=== PATIENT | male | born 1925 | race Caucasian/White ===

== ENCOUNTER → 2016-11-14 | Day surgery (SDC) | payer MEDICARE ==
[~2016-11-14] VITALS: Ht 180.3 cm; Wt 86.2 kg
[~2016-11-14] MED LIST: AMA1 PO; AMLO5TAB4 PO; ASPI-1035 PO; ATOR20TA PO; CARV12.545 PO; CARV6.2548 PO; CLOP75TA2 PO; DIPHENHYDRAMINE 50MG/ML VIAL ONE; FAMO20TA8 PO; FAMOTIDINE 20MG/2ML VIAL IV ONE; FENTANYL CITRATE/PF 50MCG/ML 2ML VIAL ONE; FINA5TAB11 PO; FISH GT; FURO20TA4 PO; GABA300C PO; GLYB5TAB7 PO; GRAP25CA PO; HEPARIN SODIUM 1,000 UNIT/1ML VIAL IV ONE; HYDROCORTISONE SOD SUCCINATE 250 MG/2 ML VIAL ONE; IODIXANOL 320MG/ML 100 ML BOTTLE IV ONE; LIDOCAINE HCL 1% 20ML VIAL (Pyxis) INJ ONE; LOSA50TA20 PO; METF10002 PO; MIDAZOLAM HCL 2 MG/2 ML VIAL ONE; POTA20TA75 PO; WARF4TAB40 PO
== END | disposition home or self-care (01) ==
LOC: CCL 07:28
PROVIDERS: ATTEND Specialist
DX: I25.10 Atherosclerotic heart disease of native coronary artery without angina pectoris (principal); I73.9 Peripheral vascular disease, unspecified; E78.5 Hyperlipidemia, unspecified; I10 Essential (primary) hypertension; J44.9 Chronic obstructive pulmonary disease, unspecified; I48.92 Unspecified atrial flutter; Z53.9 Procedure and treatment not carried out, unspecified reason
CPT/HCPCS: J1200; J1644; J1720; J2250; J3010; J3490; Q9967

== ENCOUNTER 2016-11-18 17:30 | Inpatient (IN) | payer MEDICARE ==
[~2016-11-18] VITALS: Ht 185.4 cm; Wt 86.2 kg
[~2016-11-18 17:30] MED LIST changes: -CARV12.545 PO; -CLOP75TA2 PO; -DIPHENHYDRAMINE 50MG/ML VIAL ONE; -FAMOTIDINE 20MG/2ML VIAL IV ONE; -FENTANYL CITRATE/PF 50MCG/ML 2ML VIAL ONE; -GABA300C PO; -GLYB5TAB7 PO; -HEPARIN SODIUM 1,000 UNIT/1ML VIAL IV ONE; -HYDROCORTISONE SOD SUCCINATE 250 MG/2 ML VIAL ONE; -IODIXANOL 320MG/ML 100 ML BOTTLE IV ONE; -LIDOCAINE HCL 1% 20ML VIAL (Pyxis) INJ ONE; +METF-246 PO; -METF10002 PO; -MIDAZOLAM HCL 2 MG/2 ML VIAL ONE; +WARF4TAB36 PO; -WARF4TAB40 PO
[2016-11-18] MEDS ORDERED: HYDROCODONE/ACETAMINOPHEN 5/325MG TABLET PO PRN (19:00)
[2016-11-18] MEDS ORDERED: HYDRALAZINE HCL 10MG TABLET PO PRN (19:00)
[2016-11-18] MEDS ORDERED: DEXTROSE 50% WATER 50ML SYRINGE IV PRN (19:00)
[2016-11-18] MEDS ORDERED: CLONIDINE 0.1MG TABLET PO PRN (19:00)
[2016-11-18] MEDS ORDERED: ALBUTEROL (0.083%) 2.5MG/3ML NEB HHN PRN (19:00)
[2016-11-18 20:00] VITALS: BP 109/75
[2016-11-18 20:30] VITALS: BP 109/75
[2016-11-18 20:55] LABS: CHLORIDE 95 mEq/L (98-107); INDEX HEMOLYSI 3 (1-3); INDEX ICTERIC 1 (1-4); INDEX LIPEMIC 1 (1-3)
[2016-11-18] MEDS: LOSARTAN POTASSIUM 50 MG TABLET PO SCH (21:00)
[2016-11-18] MEDS: CARVEDILOL 6.25 MG TABLET PO SCH (21:00)
[2016-11-18] MEDS: BLOOD SUGAR DIAGNOSTIC STRIP TEST SCH (21:00)
[2016-11-18 21:05] LABS: ALANINE AMINOTRANSFERASE 25 IU/L (13-61); ANION GAP 14; CALCIUM 8.1 mg/dL (8.5-10.1); CARBON DIOXIDE 24 mEq/L (21-32); PREALBUMIN 15.3 mg/dL (20.0-40.0); UREA NITROGEN BLOOD 19 mg/dL (7-21); eGFR > 60 mL/min (>60)
[2016-11-18] MEDS: IPRATROPIUM BROMIDE (0.02%) 0.5MG/2.5ML NEB HHN SCH (21:24)
[2016-11-18 21:27] LABS: HEMATOCRIT 40.1 % (42.0-52.0); HEMOGLOBIN 13.6 g/dL (14.0-18.0); MEAN CORPUSCULAR HEMOGLOBIN 29.4 pg (28.0-32.0); MEAN CORPUSCULAR VOLUME 86.5 fL (80.0-94.0); PLATELET 136 x1000/uL (130-400); RED BLOOD CELL COUNT 4.64 mill/uL (4.7-6.1); RED CELL DISTRIBUTION WIDTH 16.1 % (11.6-14.6); WHITE BLOOD COUNT 6.9 x1000/uL (4.5-11.0)
[2016-11-18] MEDS: GUAIFENESIN 600MG ER TABLET PO SCH (22:07)
[2016-11-18] MEDS: AZITHROMYCIN 250 MG TABLET PO SCH (22:07)
[2016-11-18] MEDS: GABAPENTIN 300MG CAPSULE PO SCH (22:08)
[2016-11-18] MEDS: INSULIN LISPRO 100 UNITS/ML SUBCUT SCH (22:50)
[2016-11-19] MEDS: IPRATROPIUM BROMIDE (0.02%) 0.5MG/2.5ML NEB HHN SCH ×4 (01:40→19:57)
[2016-11-19] MEDS: BLOOD SUGAR DIAGNOSTIC STRIP TEST SCH ×4 (06:23→21:00)
[2016-11-19] MEDS: INSULIN LISPRO 100 UNITS/ML SUBCUT SCH ×4 (06:23→21:00)
[2016-11-19 08:00] VITALS: BP 120/81
[2016-11-19] MEDS: ASPIRIN 81MG TABLET PO SCH (09:29)
[2016-11-19] MEDS: CARVEDILOL 6.25 MG TABLET PO SCH ×2 (09:30→21:00)
[2016-11-19] MEDS: LOSARTAN POTASSIUM 50 MG TABLET PO SCH ×2 (09:30→21:00)
[2016-11-19] MEDS: GUAIFENESIN 600MG ER TABLET PO SCH ×2 (09:31→22:34)
[2016-11-19] MEDS: AZITHROMYCIN 250 MG TABLET PO SCH (09:31)
[2016-11-19 11:13] LABS: THYROID STIMULATING HORMONE 0.56 uIU/mL (0.36-3.74)
[2016-11-19] MEDS: ENOXAPARIN 40MG/0.4ML SYR SUBCUT SCH (16:31)
[2016-11-19] MEDS ORDERED: ZOLPIDEM TARTRATE 5MG TABLET PO PRN (22:30)
[2016-11-19] MEDS: GABAPENTIN 300MG CAPSULE PO SCH (22:33)
[2016-11-20 00:44] VITALS: BP 100/66
[2016-11-20] MEDS: IPRATROPIUM BROMIDE (0.02%) 0.5MG/2.5ML NEB HHN SCH ×3 (01:00→08:06)
[2016-11-20] MEDS: BLOOD SUGAR DIAGNOSTIC STRIP TEST SCH ×4 (06:25→21:00)
[2016-11-20 06:44] LABS: ANION GAP 13; CALCIUM 8.2 mg/dL (8.5-10.1); CARBON DIOXIDE 28 mEq/L (21-32); CHLORIDE 93 mEq/L (98-107); INDEX HEMOLYSI 1 (1-3); INDEX ICTERIC 1 (1-4); INDEX LIPEMIC 1 (1-3); UREA NITROGEN BLOOD 15 mg/dL (7-21); eGFR > 60 mL/min (>60)
[2016-11-20 06:59] LABS: HEMATOCRIT. 41.7 % (42.0-52.0); HEMOGLOBIN. 14.1 g/dL (14.0-18.0); MEAN CORPUSCULAR HEMOGLOBIN 29.3 pg (28.0-32.0); MEAN CORPUSCULAR HGB CONC 33.7 g/dL (31.0-37.0); MEAN CORPUSCULAR VOLUME 86.7 fL (80.0-94.0); MEAN PLATELET VOLUME 8.4 fl (7.4-10.4); PLATELET 136 x1000/uL (130-400); RED BLOOD CELL COUNT 4.81 mill/uL (4.7-6.1); RED CELL DISTRIBUTION WIDTH 16.1 % (11.6-14.6); WHITE BLOOD COUNT 7.6 x1000/uL (4.5-11.0)
[2016-11-20 08:00] VITALS: BP 144/93
[2016-11-20 08:03] LABS: DIFFERENTIAL COMMENT 1
[2016-11-20] MEDS ORDERED: POTASSIUM CHLORIDE 20MEQ TABLET SR PO NR (08:06)
[2016-11-20] MEDS: LACTULOSE 20G/30ML UDC PO SCH ×3 (08:45→18:02)
[2016-11-20] MEDS: DOCUSATE SODIUM 100MG CAPSULE PO SCH ×2 (10:32→18:02)
[2016-11-20] MEDS: ASPIRIN 81MG TABLET PO SCH (10:33)
[2016-11-20] MEDS: AZITHROMYCIN 250 MG TABLET PO SCH (10:33)
[2016-11-20] MEDS: LOSARTAN POTASSIUM 50 MG TABLET PO SCH ×2 (10:34→21:00)
[2016-11-20] MEDS: GUAIFENESIN 600MG ER TABLET PO SCH ×2 (10:34→23:15)
[2016-11-20] MEDS: CARVEDILOL 6.25 MG TABLET PO SCH ×2 (10:34→21:00)
[2016-11-20] MEDS: INSULIN LISPRO 100 UNITS/ML SUBCUT SCH ×4 (10:36→21:00)
[2016-11-20] MEDS: ENOXAPARIN 40MG/0.4ML SYR SUBCUT SCH (10:36)
[2016-11-20] MEDS: IPRATROPIUM/ALBUTEROL 0.5-3(2.5)MG/3ML NEB HHN SCH ×2 (13:57→21:15)
[2016-11-20 14:01] LABS: ANISOCYTOSIS 1+; PLATELET ESTIMATE NORMAL
[2016-11-20 18:43] LABS: SODIUM URINE RANDOM 19 mEq/L
[2016-11-20 20:00] VITALS: BP 110/68
[2016-11-20 20:25] LABS: OSMOLALITY URINE 590 mOsm/kg (500-850)
[2016-11-20] MEDS: GABAPENTIN 300MG CAPSULE PO SCH (23:14)
[2016-11-20] MEDS: POLYETHYLENE GLYCOL 3350 (17GM) 1 DOSE PACK PO SCH (23:15)
[2016-11-21] MEDS: IPRATROPIUM/ALBUTEROL 0.5-3(2.5)MG/3ML NEB HHN SCH ×3 (00:45→19:46)
[2016-11-21] MEDS: BLOOD SUGAR DIAGNOSTIC STRIP TEST SCH ×4 (07:05→21:00)
[2016-11-21] MEDS: INSULIN LISPRO 100 UNITS/ML SUBCUT SCH ×4 (07:09→22:39)
[2016-11-21 07:12] LABS: BASOPHILS % 0.5 % (0.0-2.0); EOSINOPHILS % 1.4 % (0.0-5.0); HEMATOCRIT. 40.6 % (42.0-52.0); HEMOGLOBIN. 13.8 g/dL (14.0-18.0); LYMPHOCYTES % 7.6 % (20.0-50.0); MEAN CORPUSCULAR HEMOGLOBIN 29.2 pg (28.0-32.0); MEAN CORPUSCULAR HGB CONC 33.9 g/dL (31.0-37.0); MEAN CORPUSCULAR VOLUME 86.2 fL (80.0-94.0); MEAN PLATELET VOLUME 8.2 fl (7.4-10.4); MONOCYTES % 11.1 % (2.0-8.0); NEUTROPHILS % 79.4 % (40.0-76.0); PLATELET 133 x1000/uL (130-400); RED BLOOD CELL COUNT 4.71 mill/uL (4.7-6.1); RED CELL DISTRIBUTION WIDTH 16.2 % (11.6-14.6); WHITE BLOOD COUNT 8.1 x1000/uL (4.5-11.0)
[2016-11-21 07:19] LABS: FERRITIN 100 ng/mL (22-322)
[2016-11-21 07:29] LABS: ANION GAP 13; CALCIUM 8.3 mg/dL (8.5-10.1); CARBON DIOXIDE 29 mEq/L (21-32); CHLORIDE 98 mEq/L (98-107); HDL CHOLESTEROL 53 mg/dL (40-59); INDEX HEMOLYSI 1 (1-3); INDEX ICTERIC 1 (1-4); INDEX LIPEMIC 1 (1-3); IRON 26 ug/dL (50-175); LDL CHOLESTEROL 87 mg/dL (5-100); TOTAL IRON BINDING CAPACITY 325 ug/dL (250-450); TRIGLYCERIDE 71 mg/dL (0-150); UREA NITROGEN BLOOD 12 mg/dL (7-21); eGFR > 60 mL/min (>60)
[2016-11-21 07:32] LABS: PROSTRATE SPECIFIC AG TOTAL 0.54 ng/mL (0.0-4.0)
[2016-11-21 08:00] VITALS: BP 129/74
[2016-11-21 08:59] LABS: INDEX HEMOLYSI 1 (1-3)
[2016-11-21 09:14] LABS: VITAMIN B12 SERUM 715 pg/mL (211-911)
[2016-11-21 09:30] LABS: FOLIC ACID (FOLATE) SERUM > 20.00 ng/mL (>5.38)
[2016-11-21] MEDS: AZITHROMYCIN 250 MG TABLET PO SCH (09:53)
[2016-11-21] MEDS: LOSARTAN POTASSIUM 50 MG TABLET PO SCH ×2 (09:53→22:26)
[2016-11-21] MEDS: ASPIRIN 81MG TABLET PO SCH (09:54)
[2016-11-21] MEDS: GUAIFENESIN 600MG ER TABLET PO SCH ×2 (09:54→22:26)
[2016-11-21] MEDS: DOCUSATE SODIUM 100MG CAPSULE PO SCH ×2 (09:54→18:28)
[2016-11-21] MEDS: CARVEDILOL 6.25 MG TABLET PO SCH ×2 (09:54→22:27)
[2016-11-21] MEDS: ENOXAPARIN 40MG/0.4ML SYR SUBCUT SCH (09:54)
[2016-11-21] MEDS ORDERED: POTASSIUM CHLORIDE 20MEQ TABLET SR PO NR (11:15)
[2016-11-21] MEDS ORDERED: POTASSIUM CHLORIDE 20 MEQ/PACKET PO NR ×2 (12:28→18:00)
[2016-11-21] MEDS ORDERED: POTASSIUM CHLORIDE 20MEQ TABLET SR PO ONE (12:30)
[2016-11-21] MEDS: FERROUS SULFATE 325MG TABLET PO SCH ×2 (12:56→18:37)
[2016-11-21 20:00] VITALS: BP 114/72
[2016-11-21] MEDS: GABAPENTIN 300MG CAPSULE PO SCH (22:25)
[2016-11-21] MEDS: POLYETHYLENE GLYCOL 3350 (17GM) 1 DOSE PACK PO SCH (22:37)
[2016-11-22] MEDS: IPRATROPIUM/ALBUTEROL 0.5-3(2.5)MG/3ML NEB HHN SCH ×5 (01:47→21:11)
[2016-11-22] MEDS: BLOOD SUGAR DIAGNOSTIC STRIP TEST SCH ×4 (06:14→21:00)
[2016-11-22] MEDS: INSULIN LISPRO 100 UNITS/ML SUBCUT SCH ×4 (06:14→22:44)
[2016-11-22 07:21] LABS: ANION GAP 13; CARBON DIOXIDE 28 mEq/L (21-32); CHLORIDE 98 mEq/L (98-107); INDEX HEMOLYSI 1 (1-3); INDEX ICTERIC 1 (1-4); INDEX LIPEMIC 1 (1-3); UREA NITROGEN BLOOD 16 mg/dL (7-21); eGFR > 60 mL/min (>60)
[2016-11-22 08:00] VITALS: BP 125/65
[2016-11-22] MEDS ORDERED: POTASSIUM CHLORIDE 20MEQ TABLET SR PO NR (08:30)
[2016-11-22] MEDS: FERROUS SULFATE 325MG TABLET PO SCH ×3 (09:11→17:40)
[2016-11-22] MEDS: ASCORBIC ACID 500 MG TABLET PO SCH (09:11)
[2016-11-22] MEDS: ASPIRIN 81MG TABLET PO SCH (09:11)
[2016-11-22] MEDS: LOSARTAN POTASSIUM 50 MG TABLET PO SCH ×2 (09:11→22:35)
[2016-11-22] MEDS: GUAIFENESIN 600MG ER TABLET PO SCH ×2 (09:11→22:36)
[2016-11-22] MEDS: DOCUSATE SODIUM 100MG CAPSULE PO SCH ×2 (09:12→17:40)
[2016-11-22] MEDS: AZITHROMYCIN 250 MG TABLET PO SCH (09:12)
[2016-11-22] MEDS: CARVEDILOL 6.25 MG TABLET PO SCH ×2 (09:13→22:36)
[2016-11-22] MEDS: ENOXAPARIN 40MG/0.4ML SYR SUBCUT SCH (09:14)
[2016-11-22 20:00] VITALS: BP 123/68
[2016-11-22] MEDS: GABAPENTIN 300MG CAPSULE PO SCH (22:35)
[2016-11-22] MEDS: POLYETHYLENE GLYCOL 3350 (17GM) 1 DOSE PACK PO SCH (22:37)
[2016-11-23] MEDS: IPRATROPIUM/ALBUTEROL 0.5-3(2.5)MG/3ML NEB HHN SCH ×4 (01:39→21:06)
[2016-11-23 05:59] LABS: BASOPHILS % 0.8 % (0.0-2.0); EOSINOPHILS % 4.2 % (0.0-5.0); HEMATOCRIT. 39.2 % (42.0-52.0); HEMOGLOBIN. 13.2 g/dL (14.0-18.0); MEAN CORPUSCULAR HEMOGLOBIN 29.4 pg (28.0-32.0); MEAN CORPUSCULAR HGB CONC 33.8 g/dL (31.0-37.0); PLATELET 151 x1000/uL (130-400); RED CELL DISTRIBUTION WIDTH 15.9 % (11.6-14.6)
[2016-11-23] MEDS: BLOOD SUGAR DIAGNOSTIC STRIP TEST SCH ×4 (06:56→21:54)
[2016-11-23 06:59] LABS: ANION GAP 10; CALCIUM 8.4 mg/dL (8.5-10.1); CARBON DIOXIDE 29 mEq/L (21-32); CHLORIDE 100 mEq/L (98-107); INDEX HEMOLYSI 1 (1-3); INDEX ICTERIC 1 (1-4); INDEX LIPEMIC 1 (1-3); UREA NITROGEN BLOOD 17 mg/dL (7-21); eGFR > 60 mL/min (>60)
[2016-11-23] MEDS: INSULIN LISPRO 100 UNITS/ML SUBCUT SCH ×4 (07:31→21:57)
[2016-11-23 08:00] VITALS: BP 131/73
[2016-11-23] MEDS: GUAIFENESIN 600MG ER TABLET PO SCH ×2 (08:04→21:00)
[2016-11-23] MEDS: DOCUSATE SODIUM 100MG CAPSULE PO SCH ×2 (08:04→16:27)
[2016-11-23] MEDS: FERROUS SULFATE 325MG TABLET PO SCH ×3 (08:04→16:27)
[2016-11-23] MEDS: ASCORBIC ACID 500 MG TABLET PO SCH (08:04)
[2016-11-23] MEDS: ASPIRIN 81MG TABLET PO SCH (08:04)
[2016-11-23] MEDS: AZITHROMYCIN 250 MG TABLET PO SCH (08:04)
[2016-11-23] MEDS: ENOXAPARIN 40MG/0.4ML SYR SUBCUT SCH (08:05)
[2016-11-23] MEDS: LOSARTAN POTASSIUM 50 MG TABLET PO SCH ×2 (08:05→21:57)
[2016-11-23] MEDS: CARVEDILOL 6.25 MG TABLET PO SCH ×2 (08:05→21:38)
[2016-11-23 20:00] VITALS: BP 134/78
[2016-11-23] MEDS: POLYETHYLENE GLYCOL 3350 (17GM) 1 DOSE PACK PO SCH (21:00)
[2016-11-23] MEDS: GABAPENTIN 300MG CAPSULE PO SCH (21:37)
[2016-11-24] VITALS: BP 115/68
[2016-11-24] MEDS: IPRATROPIUM/ALBUTEROL 0.5-3(2.5)MG/3ML NEB HHN SCH ×5 (02:13→20:25)
[2016-11-24 04:00] VITALS: BP 112/68
[2016-11-24] MEDS: INSULIN LISPRO 100 UNITS/ML SUBCUT SCH ×4 (06:36→21:00)
[2016-11-24] MEDS: BLOOD SUGAR DIAGNOSTIC STRIP TEST SCH ×4 (06:36→21:00)
[2016-11-24 08:00] VITALS: BP 108/72
[2016-11-24] MEDS: DOCUSATE SODIUM 100MG CAPSULE PO SCH ×2 (08:48→17:00)
[2016-11-24] MEDS: FERROUS SULFATE 325MG TABLET PO SCH ×3 (08:48→17:00)
[2016-11-24] MEDS: ASCORBIC ACID 500 MG TABLET PO SCH (08:48)
[2016-11-24] MEDS: ENOXAPARIN 40MG/0.4ML SYR SUBCUT SCH (08:48)
[2016-11-24] MEDS: AZITHROMYCIN 250 MG TABLET PO SCH (08:48)
[2016-11-24] MEDS: ASPIRIN 81MG TABLET PO SCH (08:48)
[2016-11-24] MEDS: GUAIFENESIN 600MG ER TABLET PO SCH ×2 (08:49→21:58)
[2016-11-24] MEDS: CARVEDILOL 6.25 MG TABLET PO SCH ×2 (08:54→21:59)
[2016-11-24] MEDS: LOSARTAN POTASSIUM 50 MG TABLET PO SCH ×2 (08:54→22:03)
[2016-11-24 12:04] LABS: 25-HYDROXY VITAMIN D3 16 ng/mL (.)
[2016-11-24 20:00] VITALS: BP 140/81
[2016-11-24] MEDS: GABAPENTIN 300MG CAPSULE PO SCH (21:58)
[2016-11-24] MEDS: POLYETHYLENE GLYCOL 3350 (17GM) 1 DOSE PACK PO SCH (21:59)
[2016-11-24] MEDS: ERGOCALCIFEROL 50000UNITS CAPSULE PO SCH (22:03)
[2016-11-25] VITALS: BP 136/68
[2016-11-25] MEDS: IPRATROPIUM/ALBUTEROL 0.5-3(2.5)MG/3ML NEB HHN SCH ×3 (01:35→21:45)
[2016-11-25] MEDS: BLOOD SUGAR DIAGNOSTIC STRIP TEST SCH ×4 (07:00→21:34)
[2016-11-25] MEDS: INSULIN LISPRO 100 UNITS/ML SUBCUT SCH ×4 (07:01→22:14)
[2016-11-25 07:35] LABS: BASOPHILS % 0.9 % (0.0-2.0); EOSINOPHILS % 3.5 % (0.0-5.0); HEMATOCRIT. 37.5 % (42.0-52.0); HEMOGLOBIN. 12.8 g/dL (14.0-18.0); LYMPHOCYTES % 14.7 % (20.0-50.0); MEAN CORPUSCULAR HEMOGLOBIN 29.7 pg (28.0-32.0); MEAN CORPUSCULAR HGB CONC 34.1 g/dL (31.0-37.0); MEAN CORPUSCULAR VOLUME 87.2 fL (80.0-94.0); MEAN PLATELET VOLUME 7.3 fl (7.4-10.4); MONOCYTES % 13.2 % (2.0-8.0); NEUTROPHILS % 67.7 % (40.0-76.0); PLATELET 160 x1000/uL (130-400); RED CELL DISTRIBUTION WIDTH 16.4 % (11.6-14.6); WHITE BLOOD COUNT 4.1 x1000/uL (4.5-11.0)
[2016-11-25 08:00] VITALS: BP 126/71
[2016-11-25 08:21] LABS: ANION GAP 11; CALCIUM 8.4 mg/dL (8.5-10.1); CARBON DIOXIDE 27 mEq/L (21-32); CHLORIDE 102 mEq/L (98-107); INDEX HEMOLYSI 1 (1-3); INDEX ICTERIC 1 (1-4); INDEX LIPEMIC 1 (1-3); UREA NITROGEN BLOOD 19 mg/dL (7-21); eGFR > 60 mL/min (>60)
[2016-11-25] MEDS: FERROUS SULFATE 325MG TABLET PO SCH ×3 (09:51→17:47)
[2016-11-25] MEDS: GUAIFENESIN 600MG ER TABLET PO SCH ×2 (09:51→21:32)
[2016-11-25] MEDS: METFORMIN HCL 500MG TABLET PO SCH ×2 (09:52→17:47)
[2016-11-25] MEDS: DOCUSATE SODIUM 100MG CAPSULE PO SCH ×2 (09:52→17:46)
[2016-11-25] MEDS: LOSARTAN POTASSIUM 50 MG TABLET PO SCH ×2 (09:53→21:32)
[2016-11-25] MEDS: ASCORBIC ACID 500 MG TABLET PO SCH (09:53)
[2016-11-25] MEDS: AZITHROMYCIN 250 MG TABLET PO SCH (09:53)
[2016-11-25] MEDS: CARVEDILOL 6.25 MG TABLET PO SCH (09:56)
[2016-11-25] MEDS: ENOXAPARIN 40MG/0.4ML SYR SUBCUT SCH (09:56)
[2016-11-25] MEDS: ASPIRIN 81MG TABLET PO SCH (09:56)
[2016-11-25] MEDS: LACTULOSE 20G/30ML UDC PO SCH ×4 (12:00→20:00)
[2016-11-25 20:00] VITALS: BP 132/66
[2016-11-25] MEDS: GABAPENTIN 300MG CAPSULE PO SCH (21:32)
[2016-11-25] MEDS: CARVEDILOL 3.125 MG TABLET PO SCH (21:32)
[2016-11-25] MEDS: POLYETHYLENE GLYCOL 3350 (17GM) 1 DOSE PACK PO SCH (21:33)
[2016-11-26] MEDS: IPRATROPIUM/ALBUTEROL 0.5-3(2.5)MG/3ML NEB HHN SCH ×4 (01:44→20:29)
[2016-11-26] MEDS: BLOOD SUGAR DIAGNOSTIC STRIP TEST SCH ×4 (06:52→21:00)
[2016-11-26] MEDS: INSULIN LISPRO 100 UNITS/ML SUBCUT SCH ×4 (07:00→22:09)
[2016-11-26 08:00] VITALS: BP 120/68
[2016-11-26] MEDS: METFORMIN HCL 500MG TABLET PO SCH ×2 (09:27→17:36)
[2016-11-26] MEDS: DOCUSATE SODIUM 100MG CAPSULE PO SCH ×2 (09:27→17:36)
[2016-11-26] MEDS: LOSARTAN POTASSIUM 50 MG TABLET PO SCH ×2 (09:27→22:03)
[2016-11-26] MEDS: ASPIRIN 81MG TABLET PO SCH (09:27)
[2016-11-26] MEDS: FERROUS SULFATE 325MG TABLET PO SCH ×3 (09:27→17:35)
[2016-11-26] MEDS: ASCORBIC ACID 500 MG TABLET PO SCH (09:27)
[2016-11-26] MEDS: ENOXAPARIN 40MG/0.4ML SYR SUBCUT SCH (09:27)
[2016-11-26] MEDS: GUAIFENESIN 600MG ER TABLET PO SCH ×2 (09:27→22:04)
[2016-11-26] MEDS: CARVEDILOL 3.125 MG TABLET PO SCH ×2 (09:28→22:04)
[2016-11-26 20:43] VITALS: BP 122/74
[2016-11-26] MEDS: POLYETHYLENE GLYCOL 3350 (17GM) 1 DOSE PACK PO SCH (21:00)
[2016-11-26] MEDS: GABAPENTIN 300MG CAPSULE PO SCH (22:03)
[2016-11-27] MEDS: IPRATROPIUM/ALBUTEROL 0.5-3(2.5)MG/3ML NEB HHN SCH ×4 (02:18→20:25)
[2016-11-27] MEDS: BLOOD SUGAR DIAGNOSTIC STRIP TEST SCH ×4 (06:32→21:00)
[2016-11-27] MEDS: INSULIN LISPRO 100 UNITS/ML SUBCUT SCH ×4 (06:32→21:00)
[2016-11-27 07:00] LABS: EOSINOPHILS % 4.1 % (0.0-5.0); HEMATOCRIT. 36.7 % (42.0-52.0); HEMOGLOBIN. 12.3 g/dL (14.0-18.0); LYMPHOCYTES % 16.3 % (20.0-50.0); MEAN CORPUSCULAR HEMOGLOBIN 29.1 pg (28.0-32.0); MEAN CORPUSCULAR HGB CONC 33.4 g/dL (31.0-37.0); MEAN CORPUSCULAR VOLUME 87.1 fL (80.0-94.0); MEAN PLATELET VOLUME 7.7 fl (7.4-10.4); MONOCYTES % 11.8 % (2.0-8.0); NEUTROPHILS % 66.8 % (40.0-76.0); PLATELET 154 x1000/uL (130-400); RED BLOOD CELL COUNT 4.22 mill/uL (4.7-6.1); RED CELL DISTRIBUTION WIDTH 16.4 % (11.6-14.6); WHITE BLOOD COUNT 4.2 x1000/uL (4.5-11.0)
[2016-11-27 07:06] LABS: ANION GAP 13; CALCIUM 8.2 mg/dL (8.5-10.1); CARBON DIOXIDE 25 mEq/L (21-32); CHLORIDE 104 mEq/L (98-107); INDEX HEMOLYSI 1 (1-3); INDEX ICTERIC 1 (1-4); INDEX LIPEMIC 1 (1-3); UREA NITROGEN BLOOD 17 mg/dL (7-21); eGFR > 60 mL/min (>60)
[2016-11-27 08:00] VITALS: BP 137/70
[2016-11-27] MEDS: FERROUS SULFATE 325MG TABLET PO SCH ×3 (08:51→17:32)
[2016-11-27] MEDS: ENOXAPARIN 40MG/0.4ML SYR SUBCUT SCH (08:51)
[2016-11-27] MEDS: ASCORBIC ACID 500 MG TABLET PO SCH (08:51)
[2016-11-27] MEDS: METFORMIN HCL 500MG TABLET PO SCH ×2 (08:51→17:32)
[2016-11-27] MEDS: CARVEDILOL 3.125 MG TABLET PO SCH ×2 (08:52→22:48)
[2016-11-27] MEDS: LOSARTAN POTASSIUM 50 MG TABLET PO SCH ×2 (08:52→22:47)
[2016-11-27] MEDS: GUAIFENESIN 600MG ER TABLET PO SCH ×2 (08:53→22:47)
[2016-11-27] MEDS: DOCUSATE SODIUM 100MG CAPSULE PO SCH ×2 (08:53→17:00)
[2016-11-27] MEDS: ASPIRIN 81MG TABLET PO SCH (08:56)
[2016-11-27 20:00] VITALS: BP 126/77
[2016-11-27] MEDS: POLYETHYLENE GLYCOL 3350 (17GM) 1 DOSE PACK PO SCH (21:00)
[2016-11-27] MEDS: GABAPENTIN 300MG CAPSULE PO SCH (22:47)
[2016-11-28] MEDS: HYDROCODONE/ACETAMINOPHEN 5/325MG TABLET PO PRN ×2 (02:03→22:54)
[2016-11-28] MEDS: IPRATROPIUM/ALBUTEROL 0.5-3(2.5)MG/3ML NEB HHN SCH ×4 (02:19→21:07)
[2016-11-28] MEDS: BLOOD SUGAR DIAGNOSTIC STRIP TEST SCH ×4 (06:50→21:00)
[2016-11-28] MEDS: INSULIN LISPRO 100 UNITS/ML SUBCUT SCH ×4 (06:51→23:00)
[2016-11-28 08:00] VITALS: BP 132/81
[2016-11-28] MEDS: ENOXAPARIN 40MG/0.4ML SYR SUBCUT SCH (08:46)
[2016-11-28] MEDS: METFORMIN HCL 500MG TABLET PO SCH ×2 (08:52→16:44)
[2016-11-28] MEDS: DOCUSATE SODIUM 100MG CAPSULE PO SCH ×2 (08:53→16:44)
[2016-11-28] MEDS: GUAIFENESIN 600MG ER TABLET PO SCH ×2 (08:53→22:52)
[2016-11-28] MEDS: FERROUS SULFATE 325MG TABLET PO SCH ×3 (08:53→16:44)
[2016-11-28] MEDS: ASPIRIN 81MG TABLET PO SCH (08:53)
[2016-11-28] MEDS: ASCORBIC ACID 500 MG TABLET PO SCH (08:53)
[2016-11-28] MEDS: LOSARTAN POTASSIUM 50 MG TABLET PO SCH ×2 (08:55→22:52)
[2016-11-28] MEDS: CARVEDILOL 3.125 MG TABLET PO SCH ×2 (08:55→22:55)
[2016-11-28 20:00] VITALS: BP 154/81
[2016-11-28] MEDS: POLYETHYLENE GLYCOL 3350 (17GM) 1 DOSE PACK PO SCH (21:00)
[2016-11-28] MEDS: GABAPENTIN 300MG CAPSULE PO SCH (22:52)
[2016-11-29 06:33] LABS: EOSINOPHILS % 3.8 % (0.0-5.0); HEMATOCRIT. 37.8 % (42.0-52.0); HEMOGLOBIN. 12.8 g/dL (14.0-18.0); LYMPHOCYTES % 15.3 % (20.0-50.0); MEAN CORPUSCULAR HEMOGLOBIN 29.3 pg (28.0-32.0); MEAN CORPUSCULAR HGB CONC 33.8 g/dL (31.0-37.0); MEAN CORPUSCULAR VOLUME 86.5 fL (80.0-94.0); MEAN PLATELET VOLUME 7.5 fl (7.4-10.4); MONOCYTES % 10.7 % (2.0-8.0); NEUTROPHILS % 69.2 % (40.0-76.0); PLATELET 166 x1000/uL (130-400); RED BLOOD CELL COUNT 4.37 mill/uL (4.7-6.1); RED CELL DISTRIBUTION WIDTH 16.1 % (11.6-14.6); WHITE BLOOD COUNT 4.4 x1000/uL (4.5-11.0)
[2016-11-29] MEDS: INSULIN LISPRO 100 UNITS/ML SUBCUT SCH ×4 (06:53→22:28)
[2016-11-29] MEDS: BLOOD SUGAR DIAGNOSTIC STRIP TEST SCH ×4 (06:53→21:00)
[2016-11-29 07:27] LABS: ANION GAP 13; CALCIUM 8.3 mg/dL (8.5-10.1); CARBON DIOXIDE 26 mEq/L (21-32); CHLORIDE 101 mEq/L (98-107); INDEX HEMOLYSI 1 (1-3); INDEX ICTERIC 1 (1-4); INDEX LIPEMIC 1 (1-3); UREA NITROGEN BLOOD 19 mg/dL (7-21)
[2016-11-29 07:34] LABS: eGFR > 60 mL/min (>60)
[2016-11-29 08:00] VITALS: BP 123/70
[2016-11-29] MEDS: ASPIRIN 81MG TABLET PO SCH (09:37)
[2016-11-29] MEDS: DOCUSATE SODIUM 100MG CAPSULE PO SCH ×2 (09:38→17:44)
[2016-11-29] MEDS: CARVEDILOL 3.125 MG TABLET PO SCH ×2 (09:40→22:17)
[2016-11-29] MEDS: LOSARTAN POTASSIUM 50 MG TABLET PO SCH ×2 (09:41→22:17)
[2016-11-29] MEDS: METFORMIN HCL 500MG TABLET PO SCH ×2 (09:42→17:44)
[2016-11-29] MEDS: ASCORBIC ACID 500 MG TABLET PO SCH (09:43)
[2016-11-29] MEDS: FERROUS SULFATE 325MG TABLET PO SCH ×3 (09:43→17:44)
[2016-11-29] MEDS: GUAIFENESIN 600MG ER TABLET PO SCH ×2 (09:44→22:15)
[2016-11-29] MEDS: ENOXAPARIN 40MG/0.4ML SYR SUBCUT SCH (09:45)
[2016-11-29] MEDS: IPRATROPIUM/ALBUTEROL 0.5-3(2.5)MG/3ML NEB HHN SCH ×3 (13:50→21:28)
[2016-11-29 20:00] VITALS: BP 114/66
[2016-11-29] MEDS: POLYETHYLENE GLYCOL 3350 (17GM) 1 DOSE PACK PO SCH (21:00)
[2016-11-29] MEDS: GABAPENTIN 300MG CAPSULE PO SCH (22:14)
[2016-11-30] MEDS: IPRATROPIUM/ALBUTEROL 0.5-3(2.5)MG/3ML NEB HHN SCH ×4 (01:07→20:59)
[2016-11-30] MEDS: BLOOD SUGAR DIAGNOSTIC STRIP TEST SCH ×4 (06:13→21:00)
[2016-11-30] MEDS: INSULIN LISPRO 100 UNITS/ML SUBCUT SCH ×4 (06:13→22:23)
[2016-11-30 08:00] VITALS: BP 122/79
[2016-11-30] MEDS: LOSARTAN POTASSIUM 50 MG TABLET PO SCH ×2 (10:37→22:07)
[2016-11-30] MEDS: DOCUSATE SODIUM 100MG CAPSULE PO SCH ×2 (10:37→18:10)
[2016-11-30] MEDS: CARVEDILOL 3.125 MG TABLET PO SCH ×2 (10:38→22:09)
[2016-11-30] MEDS: METFORMIN HCL 500MG TABLET PO SCH ×2 (10:40→18:10)
[2016-11-30] MEDS: ASCORBIC ACID 500 MG TABLET PO SCH (10:40)
[2016-11-30] MEDS: GUAIFENESIN 600MG ER TABLET PO SCH ×2 (10:41→22:07)
[2016-11-30] MEDS: ENOXAPARIN 40MG/0.4ML SYR SUBCUT SCH (10:42)
[2016-11-30] MEDS: FERROUS SULFATE 325MG TABLET PO SCH ×3 (10:42→18:10)
[2016-11-30] MEDS: ASPIRIN 81MG TABLET PO SCH (10:45)
[2016-11-30] MEDS ORDERED: TRAMADOL 50MG TABLET PO PRN (16:45)
[2016-11-30 17:19] LABS: PROTHROMBIN TIME 10.7 sec
[2016-11-30] MEDS ORDERED: WARFARIN SODIUM 2.5MG TABLET PO SCH (19:30)
[2016-11-30 20:00] VITALS: BP 115/73
[2016-11-30] MEDS: POLYETHYLENE GLYCOL 3350 (17GM) 1 DOSE PACK PO SCH (21:00)
[2016-11-30] MEDS: GABAPENTIN 300MG CAPSULE PO SCH (22:08)
[2016-12-01] MEDS: IPRATROPIUM/ALBUTEROL 0.5-3(2.5)MG/3ML NEB HHN SCH ×3 (01:00→13:13)
[2016-12-01 06:18] LABS: INR 1.1
[2016-12-01 06:19] LABS: EOSINOPHILS % 4.9 % (0.0-5.0); HEMATOCRIT. 38.1 % (42.0-52.0); HEMOGLOBIN. 12.9 g/dL (14.0-18.0); MEAN CORPUSCULAR HEMOGLOBIN 29.4 pg (28.0-32.0); MEAN CORPUSCULAR HGB CONC 33.8 g/dL (31.0-37.0); MEAN CORPUSCULAR VOLUME 86.9 fL (80.0-94.0); MEAN PLATELET VOLUME 7.5 fl (7.4-10.4); MONOCYTES % 12.4 % (2.0-8.0); NEUTROPHILS % 65.7 % (40.0-76.0); PLATELET 149 x1000/uL (130-400); RED BLOOD CELL COUNT 4.38 mill/uL (4.7-6.1); RED CELL DISTRIBUTION WIDTH 16.5 % (11.6-14.6); WHITE BLOOD COUNT 3.8 x1000/uL (4.5-11.0)
[2016-12-01] MEDS: INSULIN LISPRO 100 UNITS/ML SUBCUT SCH ×2 (06:53→12:45)
[2016-12-01] MEDS: BLOOD SUGAR DIAGNOSTIC STRIP TEST SCH ×2 (06:53→11:30)
[2016-12-01 06:57] LABS: CHLORIDE 101 mEq/L (98-107); INDEX HEMOLYSI 1 (1-3); INDEX ICTERIC 1 (1-4); INDEX LIPEMIC 1 (1-3)
[2016-12-01 07:26] LABS: ALANINE AMINOTRANSFERASE 23 IU/L (13-61); ANION GAP 14; CALCIUM 8.4 mg/dL (8.5-10.1); CARBON DIOXIDE 26 mEq/L (21-32); UREA NITROGEN BLOOD 20 mg/dL (7-21); eGFR > 60 mL/min (>60)
[2016-12-01 08:00] VITALS: BP 159/93
[2016-12-01] MEDS: ASPIRIN 81MG TABLET PO SCH (08:43)
[2016-12-01] MEDS: GUAIFENESIN 600MG ER TABLET PO SCH (08:43)
[2016-12-01] MEDS: ERGOCALCIFEROL 50000UNITS CAPSULE PO SCH (08:43)
[2016-12-01] MEDS: LOSARTAN POTASSIUM 50 MG TABLET PO SCH (08:43)
[2016-12-01] MEDS: DOCUSATE SODIUM 100MG CAPSULE PO SCH (08:43)
[2016-12-01] MEDS: METFORMIN HCL 500MG TABLET PO SCH (08:43)
[2016-12-01] MEDS: ASCORBIC ACID 500 MG TABLET PO SCH (08:43)
[2016-12-01] MEDS: FERROUS SULFATE 325MG TABLET PO SCH ×2 (08:43→11:31)
[2016-12-01] MEDS: ENOXAPARIN 40MG/0.4ML SYR SUBCUT SCH (08:43)
[2016-12-01] MEDS: CARVEDILOL 3.125 MG TABLET PO SCH (08:43)
[2016-12-01 10:14] VITALS: BP 145/72
[2016-12-01 15:36] VITALS: BP 131/70
== END 2016-12-01 16:04 | disposition home health service (06) | DRG 291 ==
PROVIDERS: ADMIT Physical Medicine & Rehabilitation Spinal Cord Injury Medicine; ATTEND Specialist
DX: I50.23 Acute on chronic systolic (congestive) heart failure (principal); J96.91 Respiratory failure, unspecified with hypoxia; E87.1 Hypo-osmolality and hyponatremia; I69.351 Hemiplegia and hemiparesis following cerebral infarction affecting right dominant side; I69.354 Hemiplegia and hemiparesis following cerebral infarction affecting left non-dominant side; I48.92 Unspecified atrial flutter; I42.9 Cardiomyopathy, unspecified; I49.5 Sick sinus syndrome; I11.0 Hypertensive heart disease with heart failure; E04.1 Nontoxic single thyroid nodule; E78.00 Pure hypercholesterolemia, unspecified; E78.5 Hyperlipidemia, unspecified; I25.10 Atherosclerotic heart disease of native coronary artery without angina pectoris; I48.0 Paroxysmal atrial fibrillation; J44.9 Chronic obstructive pulmonary disease, unspecified; N40.0 Benign prostatic hyperplasia without lower urinary tract symptoms; E11.42 Type 2 diabetes mellitus with diabetic polyneuropathy; I44.7 Left bundle-branch block, unspecified; E87.6 Hypokalemia; J61 Pneumoconiosis due to asbestos and other mineral fibers; E61.1 Iron deficiency; E55.9 Vitamin D deficiency, unspecified; F06.31 Mood disorder due to known physiological condition with depressive features; M79.89 Other specified soft tissue disorders; E11.51 Type 2 diabetes mellitus with diabetic peripheral angiopathy without gangrene; I35.0 Nonrheumatic aortic (valve) stenosis; R47.1 Dysarthria and anarthria; R26.9 Unspecified abnormalities of gait and mobility; M75.01 Adhesive capsulitis of right shoulder; Z95.810 Presence of automatic (implantable) cardiac defibrillator; Z95.5 Presence of coronary angioplasty implant and graft; Z95.2 Presence of prosthetic heart valve; Z88.1 Allergy status to other antibiotic agents; Z88.0 Allergy status to penicillin; Z85.72 Personal history of non-Hodgkin lymphomas; Z88.8 Allergy status to other drugs, medicaments and biological substances; Z91.041 Radiographic dye allergy status; Z91.013 Allergy to seafood; Z79.82 Long term (current) use of aspirin; Z79.899 Other long term (current) drug therapy
CPT/HCPCS: 36415; 71010; 80048; 80053; 80061; 82306; 82533; 82607; 82728; 82746; 82962; 83036; 83540; 83550; 83735; 83930; 83935; 84100; 84134; 84153; 84300; 84443; 84630; 85025; 85027; 85610; 92523; 92610; 93005; 93970; 94640; 97110; 97112; 97116; 97150; 97162; 97167; 97530; 97535; J1650; J1815; J7611; J7620